=== PATIENT | male | born 1985 | race Caucasian/White ===

== ENCOUNTER 2017-03-29 13:57 | Emergency (ER) | payer OTHER ==
[~2017-03-29] VITALS: Ht 188 cm; Wt 94.7 kg
[~2017-03-29 13:57] MED LIST: ASPCH81X PO
[2017-03-29 14:16] VITALS: TEMP 36.8; Ht 188 cm; Wt 94.7 kg
--- NOTE | 2017-03-29 14:44 | EMERGENCY ROOM VISIT NOTE ---
ED Visit Note First contact with patient: 14:30 CHIEF COMPLAINT: Finger injury HISTORY OF PRESENT ILLNESS: This 31 year old male patient presents to the emergency department after injuring the right middle finger that he got caught in a metal instrument while cleaning it. The patient rates the pain as throbbing and 2/10. The patient has normal range of motion of the finger. No numbness or tingling. Laceration injury to the fingertip. There has been moderate bleeding, though this was controlled with a bandage prior to arrival. No other injuries. The patient has not had previous fracture to this finger. The patient has taken no medications for the pain. His tetanus is not up to date. REVIEW OF SYSTEMS: A 6 system review of systems was completed with positives and pertinent negatives in the HPI. ALLERGIES: See chart MEDICATIONS: See chart PMH: See chart SOCIAL HISTORY: See chart PHYSICAL EXAM: Vital Signs: Reviewed Nurse's notes, vital signs stable. GENERAL : Pleasant and cooperative, in no acute distress, well-developed, well- nourished. MUSCULOSKELETAL: There is avulsion deformity of the distal third right finger. The patient has intact flexion and intact extension of the distal finger distal strength to resistance is also intact. The DIP joint is maximally tender. There is no ligamentous instability. There is a full-thickness avulsion laceration of finger pad, with intact nail and no damage to the nail bed noted. There is exposed bone. Tendon flexion/extension intact. Sensation intact. Minimal bleeding from the wound. No foreign body. Capillary refill less than 2 seconds. No tenderness of the remaining fingers or hand. Full range of motion of the wrist. NEURO: Alert and oriented to person, place, and time. Normal sensation to light and sharp touch. EMERGENCY DEPARTMENT COURSE: I examined the patient. An x-ray of the right third finger was reviewed by myself and radiologist and showed distal phalanx fracture associated with the laceration. The wound was irrigated copiously with normal saline. Wound was dressed with antibiotic ointment and a sterile dressing. The patient was given 2 g IV Ancef to treat open fracture and given prescription for Keflex. The finger was immobilized by with a metal splint under my direction and the position was satisfactory. Neurovascular status rechecked and intact. Patient was instructed to follow up with orthopedics. The patient was discharged home in good condition. Current/Historical Medications No Active Prescriptions or Reported Meds Allergies Coded Allergies: No Known Allergies (Unverified , 03/29/17) Vital Signs Date Time Temp Pulse Resp B/P (MAP) Pulse Ox O2 Delivery O2 Flow Rate FiO2 03/29/17 16:54 60 18 132/74 100 03/29/17 16:14 67 18 146/76 100 Room Air 03/29/17 14:16 36.8 62 20 144/91 100 Room Air Medications Administered Medications (Trade) Dose Ordered Sig/Bree Route Start Time Stop Time Status Last Admin Dose Admin Diphtheria/ Pertussis/Tetanus Vacc (Adacel Inj) 0.5 ml ONCE ONCE IM. 03/29/17 14:45 03/29/17 14:46 DC 03/29/17 15:26 0.5 ML Cefazolin Sodium (Ancef 2000mg/60 ml D5W) 2,000 mg NOW STAT IV 03/29/17 15:52 03/29/17 15:55 DC 03/29/17 16:14 2,000 MG Departure Information Impression Primary Impression: Avulsion, finger tip Additional Impression: Open fracture of phalanx of right middle finger Dispostion Home / Self-Care Condition GOOD Prescriptions Cephalexin Monohydrate (Keflex) 500 Mg Cap 500 MG PO QID for 7 Days, #28 CAP Prov: Mechelle Moreno CRNP 03/29/17 Referrals Benjie Blanton M.D. (PCP) Flex Downs MD Patient Instructions ED Laceration Amputation Finger Tip Open Tx, My [facility] Additional Instructions Keep the wound clean and dry. Change the dressing if it becomes saturated/ soiled, and at least once a day. You may wash the area with warm water and soap. Pat dry. Use an antibiotic ointment for 3-4 days, then let wound dry. Wear a finger splint to protect the finger. Ibuprofen 600 mg and Tylenol 1000 mg every 6-8 hrs as needed for pain. You were prescribed Keflex to be taken 4 times a day for 7 days. This is an antibiotic. All antibiotics have the potential to cause diarrhea. Stop this medication and contact a medical provider if you were to develop any significant adverse side effects including: wheezing, shortness of breath, passing out, vomiting, or a diffuse rash. Always take antibiotics as directed and COMPLETE the ENTIRE course regardless of the improvement of your symptoms. You should follow-up with Dr. Downs, the orthopedic hand specialist, in the next few days. Call for an appointment. Please seek immediate medical attention for any signs of infection (increasing redness, swelling, pus drainage, streaking up the arm, fever/chills). Problem Qualifiers Primary Impression: Avulsion, finger tip Encounter type: initial encounter Qualified Codes: S61.209A - Unspecified open wound of unspecified finger without damage to nail, initial encounter Additional Impression: Open fracture of phalanx of right middle finger Encounter type: initial encounter Phalanx: distal Fracture alignment: nondisplaced Qualified Codes: S62.662B - Nondisplaced fracture of distal phalanx of right middle finger, initial encounter for open fracture
[2017-03-29] MEDS ORDERED: DIPHTHERIA/TETANUS/PERTUSSIS 0.5 ML SYR/VIAL IM. ONE (14:45)
--- NOTE | 2017-03-29 15:36 | DIAGNOSTIC IMAGING REPORT ---
RIGHT FINGER(S) MIN 2 VIEWS ROUTINE CLINICAL HISTORY: right 3rd finger tip avulsion, eval open fx Right COMPARISON: None. DISCUSSION: Considerable soft tissue loss of the tuft of the distal phalanx. Partial bony avulsion of the tuft of the distal phalanx right third finger. No evidence of dislocation. IMPRESSION: An avulsion of the tip of the distal phalanx with associated partial avulsion of the tuft distal phalanx. Electronically signed by: Kai Duarte M.D. 03/29/2017 3:35 PM Dictated Date/Time: 03/29/2017 3:34 PM
[2017-03-29] MEDS ORDERED: CEFAZOLIN IV 2,000 MG/60 ML D5W IV STA (15:52)
[2017-03-29 16:54] VITALS: BP 132/74; PULSE 60; O2SAT 100
[2017-03-29] MEDS ORDERED: CEPH500C PO (17:04)
== END 2017-03-29 16:55 | disposition home or self-care (01) ==
LOC: C.EDB 13:58 → C.EDD 16:55
DX: S61.302A Unspecified open wound of right middle finger with damage to nail, initial encounter (principal); S62.602B Fracture of unspecified phalanx of right middle finger, initial encounter for open fracture; W23.0XXA Caught, crushed, jammed, or pinched between moving objects, initial encounter; Z23 Encounter for immunization

== ENCOUNTER 2017-08-10 13:48 | Emergency (ER) | payer OTHER ==
[~2017-08-10] VITALS: Ht 188 cm; Wt 99.2 kg
[2017-08-10 14:00] VITALS: Ht 188 cm; Wt 99.2 kg
[2017-08-10 15:10] LABS: BASO % 0.3 %; BASO ABS # 0.03 K/uL (0-0.2); COMPLETE YES; EOS % 0.5 %; HEMATOCRIT 45.9 % (42-52); IG% 0.4 %; LYMPH % 9.8 %; LYMPH ABS # 1.11 K/uL (1.2-3.4); MEAN CELL VOLUME 92.9 fL (80-100); MEAN CORPUSCULAR HEMOGLOBIN 31.8 pg (25-34); MEAN CORPUSCULAR HGB CONC 34.2 g/dl (32-36); MEAN PLATELET VOLUME 9.7 fL (7.4-10.4); MONO % 4.8 %; NEUT % 84.2 %; PLATELET COUNT 288 K/uL (130-400); RED BLOOD COUNT 4.94 M/uL (4.7-6.1); WHITE BLOOD COUNT 11.28 K/uL (4.8-10.8)
[2017-08-10] MEDS ORDERED: IBUP-1050 PO (15:27)
[2017-08-10 15:29] LABS: BUN/CREATININE RATIO 14.3 (10-20); CALCIUM 9.3 mg/dl (8.5-10.1); CREATININE 1.15 mg/dl (0.60-1.40); POTASSIUM 4.3 mmol/L (3.5-5.1)
[2017-08-10 15:32] LABS: ALB/GLOB RATIO 1.2 (0.9-2)
[2017-08-10 16:06] LABS: MANUAL MICROSCOPIC REQUIRED? NO; URINE APPEARANCE CLEAR (CLEAR); URINE BILIRUBIN NEG (NEG); URINE COLOR YELLOW; URINE NITRITE NEG (NEG); URINE SPECIFIC GRAVITY <= 1.005 (1.000-1.030); UROBILINOGEN NEG (NEG)
[2017-08-10 16:20] LABS: REVIEW REQ? NO
--- NOTE | 2017-08-10 16:40 | DIAGNOSTIC IMAGING REPORT ---
ABDOMINAL ULTRASOUND, RIGHT UPPER QUADRANT HISTORY: RUQ PAIN AND INDIGESTION X 5 DAYS. COMPARISON: Abdomen and pelvis CT 03/27/2012. FINDINGS: Pancreas: The pancreas demonstrates a normal echotexture. Liver: Unremarkable. Gallbladder: No gallbladder wall thickening. No gallstones. CBD: 3 mm. Right kidney: No hydronephrosis. IMPRESSION: No significant abnormality identified within the right upper quadrant. Electronically signed by: Phillip Huertas M.D. 08/10/2017 4:38 PM Dictated Date/Time: 08/10/2017 4:37 PM
--- NOTE | 2017-08-10 17:11 | EMERGENCY ROOM VISIT NOTE ---
History First contact with patient: 14:35 Chief Complaint: ABDOMINAL PAIN Stated Complaint: UPPER RT QUADRANT PAIN INTO FLANK Nursing Triage Summary: Pt c/o upper right quadrant pain that wraps around to back. Began Sunday after eating dip. Pain intermittent. Denies n/v/d. Pt denies urinary symptoms. History of Present Illness Patient is an otherwise healthy 32-year-old white male who presents emergency department for evaluation of right upper quadrant abdominal pain 5 days. He states and symptoms started after eating a dip containing salsa, Velveeta cheese and ranch dressing on Sunday. He states that the pain was its worst that evening. He took some ibuprofen at that time. The pain has lessened, and become more dull and intermittent over the last 4 days, however has persisted. The patient also notes a lot of heartburn and indigestion initially, which was alleviated by a shot of apple juice and apple cider vinegar. He otherwise feels well. He has been eating and drinking normally. He had a normal Thanksgiving meal yesterday. He does note that the pain goes away when he exercises. 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 He denies any chest pain, palpitations or shortness of breath. No fever or chills. He denies any dysuria, frequency, urgency or hematuria. Bowel movements have been normal. He denies any alcohol consumption. He does have a family history of gallbladder disease. He rates his discomfort a 2/10 presently. Review of Systems Review of systems as per HPI. All other systems reviewed were negative. 10 systems reviewed. Past Medical/Surgical History Medical Problems: (1) Acute sinusitis (2) Avulsion, finger tip (3) No Known Active Medical Problems (4) Open fracture of phalanx of right middle finger Electronic medical records are reviewed and summarized as above/below. See Problem List. Social History Smoking Status: Former Smoker Housing Status: lives with family Occupation Status: employed Current/Historical Medications Scheduled Ibuprofen (Advil), 400 MG PO PRN UD Physical Exam Vital Signs Date Time Temp Pulse Resp B/P (MAP) Pulse Ox O2 Delivery O2 Flow Rate FiO2 08/10/17 17:55 37.0 78 18 144/77 100 08/10/17 14:00 37.4 96 16 146/87 100 Room Air Physical Exam CONSTITUTIONAL: Patient is a pleasant, well-appearing 32-year-old white male who is awake and alert and in no acute distress. EYES: Pupils equal, round, reactive to light and accommodation. EOMs intact without nystagmus. Sclera are anicteric. ENT: Tympanic membranes intact, with normal landmarks. External canals are clear. Oral and nasopharynx are clear. Mucous membranes are moist, no lesions , tongue and gums appear normal. NECK: Supple without lymphadenopathy. No thyromegaly. No meningeal signs. Full active range of motion without discomfort. CARDIOVASCULAR: Regular rate and rhythm, with normal S1 and S2, no murmur or gallop or rub is heard. No carotid bruits auscultated. No JVD. Peripheral pulses easily palpable. RESPIRATORY: Breath sounds equal and clear to auscultation without wheezes, rales, or rhonchi heard. Full and equal chest expansion without accessory muscle use or retractions. ABDOMEN: Bowel sounds are present. Abdomen is soft, nondistended, mildly tender in the epigastric and the right upper quadrant, without guarding, rebound or rigidity. There is no pain in the right or the left lower quadrant. Negative Romo's sign. No CVA tenderness. INTEGUMENTARY: No lesions or rash, normal skin turgor. LYMPH: No lymphadenopathy. Medical Decision & Procedures ER Provider Diagnostic Interpretation: ABDOMINAL ULTRASOUND, RIGHT UPPER QUADRANT HISTORY: RUQ PAIN AND INDIGESTION X 5 DAYS. COMPARISON: Abdomen and pelvis CT 03/27/2012. FINDINGS: Pancreas: The pancreas demonstrates a normal echotexture. Liver: Unremarkable. Gallbladder: No gallbladder wall thickening. No gallstones. CBD: 3 mm. Right kidney: No hydronephrosis. IMPRESSION: No significant abnormality identified within the right upper quadrant. Laboratory Results 08/10/17 14:55 Red Blood Count 4.94, Mean Corpuscular Volume 92.9, Mean Corpuscular Hemoglobin 31.8, Mean Corpuscular Hemoglobin Concent 34.2, Mean Platelet Volume 9.7, Neutrophils (%) (Auto) 84.2, Lymphocytes (%) (Auto) 9.8, Monocytes (%) (Auto) 4.8, Eosinophils (%) (Auto) 0.5, Basophils (%) (Auto) 0.3, Neutrophils # (Auto) 9.50, Lymphocytes # (Auto) 1.11, Monocytes # (Auto) 0.54, Eosinophils # (Auto) 0.06, Basophils # (Auto) 0.03 08/10/17 14:55 Test 08/10/17 14:35 08/10/17 14:55 Urine Color YELLOW Urine Appearance CLEAR (CLEAR) Urine pH 6.0 (4.5-7.5) Urine Specific [place] <= 1.005 (1.000-1.030) Urine Protein NEG (NEG) Urine Glucose (UA) NEG (NEG) Urine Ketones NEG (NEG) Urine Occult Blood NEG (NEG) Urine Nitrite NEG (NEG) Urine Bilirubin NEG (NEG) Urine Urobilinogen NEG (NEG) Urine Leukocyte Esterase NEG (NEG) White Blood Count 11.28 K/uL (4.8-10.8) Red Blood Count 4.94 M/uL (4.7-6.1) Hemoglobin 15.7 g/dL (14.0-18.0) Hematocrit 45.9 % (42-52) Mean Corpuscular Volume 92.9 fL (80-100) Mean Corpuscular Hemoglobin 31.8 pg (25-34) Mean Corpuscular Hemoglobin Concent 34.2 g/dl (32-36) Platelet Count 288 K/uL (130-400) Mean Platelet Volume 9.7 fL (7.4-10.4) Neutrophils (%) (Auto) 84.2 % Lymphocytes (%) (Auto) 9.8 % Monocytes (%) (Auto) 4.8 % Eosinophils (%) (Auto) 0.5 % Basophils (%) (Auto) 0.3 % Neutrophils # (Auto) 9.50 K/uL (1.4-6.5) Lymphocytes # (Auto) 1.11 K/uL (1.2-3.4) Monocytes # (Auto) 0.54 K/uL (0.11-0.59) Eosinophils # (Auto) 0.06 K/uL (0-0.5) Basophils # (Auto) 0.03 K/uL (0-0.2) RDW Standard Deviation 43.8 fL (36.4-46.3) RDW Coefficient of Variation 12.9 % (11.5-14.5) Immature Granulocyte % (Auto) 0.4 % Immature Granulocyte # (Auto) 0.04 K/uL (0.00-0.02) Anion Gap 8.0 mmol/L (3-11) Est Creatinine Clear Calc Drug Dose 114.0 ml/min Estimated GFR () 95.7 Estimated GFR (Non- 82.6 BUN/Creatinine Ratio 14.3 (10-20) Calcium Level 9.3 mg/dl (8.5-10.1) Total Bilirubin 0.4 mg/dl (0.2-1) Aspartate Amino Transf (AST/SGOT) 21 U/L (15-37) Alanine Aminotransferase (ALT/SGPT) 28 U/L (12-78) Alkaline Phosphatase 89 U/L (45-117) Total Protein 8.5 gm/dl (6.4-8.2) Albumin 4.6 gm/dl (3.4-5.0) Globulin 3.9 gm/dl (2.5-4.0) Albumin/Globulin Ratio 1.2 (0.9-2) Lipase 126 U/L (73-393) ED Course The patient was seen and assessed as above. Old records were reviewed. IV lock was initiated. The patient is offered, but declined any medication for discomfort. Urinalysis, CBC with differential, CMP and lipase were drawn. Right upper quadrant ultrasound was performed. Patient's urine sample was completely clean. White count is only minimally elevated at 11,200, electrolytes, renal functions and liver functions are all within normal limits. Lipase is not elevated. Right upper quadrant ultrasound did not demonstrate any gallbladder wall thickening, gallstones or ductal dilatation. All laboratory and diagnostic imaging studies were reviewed with attending physician and discussed with the patient. Differential diagnoses entertained included biliary colic, acute cholecystitis, cholelithiasis, pancreatitis, peptic ulcer disease, gastritis, GERD, esophagitis, musculoskeletal injury, intercostal neuritis, among others. Conservative care measures were discussed. The patient was encouraged to start a PPI, and was advised to use Prilosec 40 mg daily. He reported that he would get [id number] Prilosec and take this and declined a prescription. Other dietary modifications were discussed with the patient. He was educated on the worrisome signs or symptoms for which she should return to the emergency department. He expressed understanding of this and was agreeable. He was encouraged to follow up with PCP if his symptoms are not improving. The patient rated his discomfort a 0/10 at discharge. Medical Decision See Emergency Department course. Medication Reconcilliation Current Medication List: was personally reviewed by me Blood Pressure Screening Patient's blood pressure: Elevated blood pressure Blood pressure disposition: Did not require urgent referral Impression Primary Impression: Right upper quadrant abdominal pain Departure Information Referrals Benjie Blanton M.D. (PCP) Patient Instructions My [facility] Additional Instructions Prilosec (omeprazole) 40mg daily. Acetaminophen(Tylenol) may be used for fever or pain. Use 1000mg every eight hours as needed. Avoid using more than 3000mg in a 24 hour period. This is available over the counter. Rest and drink plenty of fluids as tolerated. Slow sips of water or sports drinks are recommended instead of large amounts all at once. Continue current medications. Once your stomach is settled start with a clear liquid diet (jello, soup broth, etc.) and then advance as tolerated. You should avoid full, heavy meals for about 24 hrs from the time your symptoms resolved. Avoid spicy, greasy, acidic foods that may aggravate your symptoms. Return to the ER immediately for worsening or persistent abdominal pain, vomiting, fevers, chest pains, difficulty breathing, black or bloody stools, worsening of your condition, or as needed. Follow up with your primary physician next week for a recheck of your current condition.
[2017-08-10 17:55] VITALS: BP 144/77; PULSE 78; TEMP 37; O2SAT 100
== END 2017-08-10 17:52 | disposition home or self-care (01) ==
LOC: C.EDB 13:50
DX: R10.11 Right upper quadrant pain (principal); K21.9 Gastro-esophageal reflux disease without esophagitis; Z87.828 Personal history of other (healed) physical injury and trauma; Z87.891 Personal history of nicotine dependence